=== PATIENT | female | born 1955 | race Caucasian/White ===

== ENCOUNTER 2017-10-09 15:26 | Inpatient (IN) | payer OTHER ==
[~2017-10-09] VITALS: Ht 157.5 cm; Wt 68.0 kg
--- NOTE | 2017-10-09 15:30 | NUR ---
PATIENT TO ED C/O COUGH CONGESTION NAUSEA VOMTIING CHILLS X3 DAYS .AFEBRILE AT THIS TIME. VSS
[2017-10-09] MEDS ORDERED: ONDANSETRON 4 MG TAB.RAPDIS ONE (16:19)
--- NOTE | 2017-10-09 16:28 | NUR ---
CALLED RT FOR BREATING TX
[2017-10-09] MEDS ORDERED: IPRATROPIUM NEB FS 0.5 MG/2.5 ML AMPUL.NEB NEB ONE (16:30)
[2017-10-09] MEDS ORDERED: ALBUTEROL FS 2.5 MG/3 ML VIAL.NEB NEB ONE ×2 (16:30→18:30)
[2017-10-09] MEDS ORDERED: ONDANSETRON 4 MG TAB.RAPDIS SL ONE (16:30)
[2017-10-09] MEDS ORDERED: AZITHROMYCIN 500 MG in IV D5W 250 ML IV ONE (18:30)
[2017-10-09] MEDS ORDERED: ACETAMINOPHEN ES 500 MG TABLET PO ONE (18:30)
[2017-10-09] MEDS ORDERED: IBUPROFEN 600 MG TABLET PO ONE ×2 (18:30→18:35)
[2017-10-09] MEDS ORDERED: IV NS 0.9% 1,000 ML BAG IV ONE ×2 (18:30)
[2017-10-09] MEDS ORDERED: CEFTRIAXONE 2 G in IV D5W 50 ML IV ONE (18:30)
[2017-10-09] MEDS ORDERED: CEFTRIAXONE 1GM BAG (ER ONLY) 50 ML IV ONE (18:30)
--- NOTE | 2017-10-09 18:30 | NUR ---
CALLED NURSING SUP. FOR TELE BED
[2017-10-09] MEDS ORDERED: CEFTRIAXONE 1GM BAG (ER ONLY) 100 ML IV ONE (18:34)
[2017-10-09] MEDS ORDERED: ACETAMINOPHEN ES 500 MG TABLET ONE (18:35)
--- NOTE | 2017-10-09 18:37 | NUR ---
EPIC PAGED, ROUTE AGENT
[2017-10-09 19:05] LABS: BASOPHILS # (AUTO) 0.2 /CMM (0.0-0.2); BASOPHILS % (AUTO) 1.7 % (0.0-2.0); EOSINOPHILS % (AUTO) 0.1 % (0.0-6.0); HEMATOCRIT 43 % (33-45); HEMOGLOBIN 14.5 g/dL (11.5-14.8); LYMPHOCYTES # (AUTO) 0.5 /CMM (0.8-4.8); LYMPHOCYTES % (AUTO) 3.8 % (20.0-44.0); MEAN CORPUSCULAR HEMOGLOBIN 29 PG (26.0-33.0); MEAN CORPUSCULAR HGB CONC 33 g/dl (31.0-36.0); MEAN CORPUSCULAR VOLUME 86 fL (82-100); MONOCYTES # (AUTO) 0.6 /CMM (0.1-1.30); MONOCYTES % (AUTO) 4.6 % (2.0-12.0); NEUTROPHILS # (AUTO) 12.5 /CMM (1.8-8.9); NEUTROPHILS % (AUTO) 89.8 % (43.0-81.0); PLATELET COUNT (AUTO) 218 /CMM (150-450); RED BLOOD CELL COUNT(AUTO) 5.08 MIL/uL (4.0-5.2); WHITE BLOOD COUNT (AUTO) 13.8 K/uL (4.3-11.0)
[2017-10-09 19:14] LABS: CALCIUM, SERUM 9.1 mg/dL (8.5-10.1); CREATININE 1.1 mg/dL (0.6-1.3); POTASSIUM 3.7 mmol/L (3.5-5.1)
--- NOTE | 2017-10-09 19:31 | NUR ---
TELE 322-2
[2017-10-09 20:00] VITALS: BP 95/54
--- NOTE | 2017-10-09 20:02 | NUR ---
PT TRANSPORTED TO TELE 322-2 VIA ACLS PROTOCOL. BEDSIDE REPORT GIVEN TO SUPERVISOR PLATING AND POINT ASSEMBLYJAMEY CORREIA.
[2017-10-09 21:33] LABS: BAND % (MANUAL) 18 % (0.0-5.0); LYMPHOCYTES % (MANUAL) 7 % (16-48); MONOCYTES % (MANUAL) 5 % (0-11.0); NEUTROPHILS % (MANUAL) 69 (42-76); REACTIVE LYMPHOCYTES 1 % (0-0)
[2017-10-09] MEDS ORDERED: ACETAMINOPHEN 325 MG TABLET PO PRN (22:30)
[2017-10-09] MEDS ORDERED: MAG HYDROX/AL HYDROX/SIMETH 30 ML UDC PO PRN (22:30)
[2017-10-09] MEDS ORDERED: HYDROCODONE/APAP 5/325MG 1 EACH TABLET PO PRN (22:30)
[2017-10-09] MEDS ORDERED: IV NS 0.9% 1,000 ML IV PRN (22:30)
[2017-10-09] MEDS ORDERED: ONDANSETRON HCL/PF 4 MG/2 ML VIAL IVP PRN (22:30)
[2017-10-09] MEDS ORDERED: Z GUARD REMEDY 2 OZ OINT TP PRN (22:30)
[2017-10-09] MEDS ORDERED: ZOLPIDEM TARTRATE 5 MG TABLET PO PRN (22:30)
[2017-10-09] MEDS ORDERED: MAGNESIUM HYDROXIDE 30 ML UDC PO PRN (22:30)
[2017-10-09] MEDS ORDERED: ENOXAPARIN SODIUM 40 MG/0.4 ML DISP.SYRIN SQ ONE (22:40)
[2017-10-09] MEDS ORDERED: LEVOFLOXACIN 750 MG /D5W 150ML 150 ML IV ONE (22:43)
[2017-10-09] MEDS: LEVOFLOXACIN 750 MG /D5W 150ML 750 MG in PREMIX 1 EA IV SCH (22:50)
[2017-10-09] MEDS: ENOXAPARIN SODIUM 40 MG/0.4 ML DISP.SYRIN SQ SCH (22:54)
--- NOTE | 2017-10-09 23:03 | NUR ---
PERMACULTURE DESIGNER NOTES LEVOFLOXACIN 750 MG IN 150 ML D5W WAS GIVEN UNABLE TO SCAN MANUAL BARCODED NO A/R NOTED
[2017-10-10] VITALS: BP 90/53
[2017-10-10] MEDS ORDERED: IPRATROPIUM NEB FS 0.5 MG/2.5 ML AMPUL.NEB ONE (01:35)
[2017-10-10] MEDS ORDERED: ALBUTEROL FS 2.5 MG/0.5 ML VIAL.NEB ONE (01:35)
[2017-10-10] MEDS: ALBUTEROL FS 2.5 MG/0.5 ML VIAL.NEB NEB PRN ×2 (01:42→16:38)
[2017-10-10] MEDS: IPRATROPIUM NEB FS 0.5 MG/2.5 ML AMPUL.NEB NEB PRN ×2 (01:42→16:38)
[2017-10-10 04:00] VITALS: BP 118/59
[2017-10-10] MEDS ORDERED: ACETYLCYSTEINE 10% SOLN 400 MG/4 ML VIAL NEB SCH (05:30)
--- NOTE | 2017-10-10 06:16 | NUR ---
Tele s/r 70s s/l 20 ga s/l to right intact no edema or swelling noted. O2 2l n/c sat 94 % notified [facility] pt requesting ambien 5mg po for insomonia and cough surup for productive cough. Dr ordered mucomyst and ambien.
--- NOTE | 2017-10-10 07:30 | NUR ---
MS RN OPENING NOTES RECEIVED PATIENT IN STABLE CONDITION. IN NO APPARENT DISTRESS. BEDSIDE RAILS ARE UP X2. BED IS LOCKED AND LOWERED. WILL CONTINUE TO MONITOR. CALL LIGHT IS WITHIN REACH.
[2017-10-10 07:45] LABS: BASOPHILS % (AUTO) 0.2 % (0.0-2.0); EOSINOPHILS % (AUTO) 0.1 % (0.0-6.0); HEMATOCRIT 32 % (33-45); HEMOGLOBIN 10.9 g/dL (11.5-14.8); LYMPHOCYTES # (AUTO) 1.5 /CMM (0.8-4.8); LYMPHOCYTES % (AUTO) 14.4 % (20.0-44.0); MEAN CORPUSCULAR HEMOGLOBIN 30 PG (26.0-33.0); MEAN CORPUSCULAR HGB CONC 34 g/dl (31.0-36.0); MEAN CORPUSCULAR VOLUME 87 fL (82-100); MONOCYTES # (AUTO) 0.7 /CMM (0.1-1.30); MONOCYTES % (AUTO) 6.8 % (2.0-12.0); NEUTROPHILS # (AUTO) 8.4 /CMM (1.8-8.9); NEUTROPHILS % (AUTO) 78.5 % (43.0-81.0); PLATELET COUNT (AUTO) 152 /CMM (150-450); RDW COEFFICIENT OF VARIATION 11.9 (11.5-15.0); RED BLOOD CELL COUNT(AUTO) 3.66 MIL/uL (4.0-5.2); WHITE BLOOD COUNT (AUTO) 10.6 K/uL (4.3-11.0)
[2017-10-10 08:00] VITALS: BP 103/62
[2017-10-10 08:01] LABS: CALCIUM, SERUM 7.8 mg/dL (8.5-10.1); CREATININE 0.9 mg/dL (0.6-1.3); PHOSPHORUS 2.6 mg/dL (2.5-4.9); POTASSIUM 3.6 mmol/L (3.5-5.1)
[2017-10-10] MEDS: MENTHOL/CETYLPYRD (CEPACOL) 1 LOZ LOZENGE PO PRN ×2 (14:25→22:35)
[2017-10-10 16:00] VITALS: BP 138/84
[2017-10-10] MEDS ORDERED: IV 1/2NS 1000 ML 1,000 ML IV PRN (18:00)
--- NOTE | 2017-10-10 19:00 | NUR ---
MS RN CLOSING NOTES PATIENT IS IN STABLE CONDITION. IN NO APPARENT DISTRESS. BEDSIDE RAILS ARE UP X2. BED IS LOCKED AND LOWERED. WILL ENDORSE CARE TO BROOMCORN SORTER NURSE FOR ASA.
--- NOTE | 2017-10-10 19:30 | NUR ---
RN NOTES RECEIVED PATIENT IN BED AWAKE, AO X 3, ABLE TO MAKE NEEDS KNOWN. NO ACUTE DISTRESS NOTED. DENIES ANY PAIN AT THIS TIME. IV SITE PATENT, INTACT; IVF INFUSING ORDERED. SAFETY REMINDERS GIVEN. ON LOW BED WITH BILATERAL UPPER SIDE RAILS UP. CALL [facility]ER[facility] WITHIN EASY REACH. WILL CONTINUE TO MONITOR.
[2017-10-10 20:00] VITALS: BP 148/88
[2017-10-10 20:14] VITALS: BP 148/88
[2017-10-10] MEDS: LEVOFLOXACIN 750 MG /D5W 150ML 750 MG in PREMIX 1 EA IV SCH (22:28)
[2017-10-10] MEDS: ENOXAPARIN SODIUM 40 MG/0.4 ML DISP.SYRIN SQ SCH (22:30)
[2017-10-11 04:00] VITALS: BP 114/69
[2017-10-11 06:21] LABS: BASOPHILS % (AUTO) 0.2 % (0.0-2.0); EOSINOPHILS % (AUTO) 0.1 % (0.0-6.0); HEMATOCRIT 32 % (33-45); HEMOGLOBIN 11.1 g/dL (11.5-14.8); LYMPHOCYTES # (AUTO) 1.3 /CMM (0.8-4.8); LYMPHOCYTES % (AUTO) 18.1 % (20.0-44.0); MEAN CORPUSCULAR HEMOGLOBIN 30 PG (26.0-33.0); MEAN CORPUSCULAR HGB CONC 35 g/dl (31.0-36.0); MEAN CORPUSCULAR VOLUME 86 fL (82-100); MONOCYTES # (AUTO) 0.5 /CMM (0.1-1.30); NEUTROPHILS # (AUTO) 5.1 /CMM (1.8-8.9); NEUTROPHILS % (AUTO) 74.6 % (43.0-81.0); PLATELET COUNT (AUTO) 160 /CMM (150-450); RDW COEFFICIENT OF VARIATION 11.9 (11.5-15.0); RED BLOOD CELL COUNT(AUTO) 3.73 MIL/uL (4.0-5.2); WHITE BLOOD COUNT (AUTO) 6.9 K/uL (4.3-11.0)
--- NOTE | 2017-10-11 06:21 | NUR ---
RN NOTES PATIENT IN BED ASLEEP, EASILY AROUSABLE. RESPIRATIONS EVEN. NO SIGNS OF PAIN NOTED. DUE MEDS GIVEN WITH NO ASE NOTED. NEEDS ATTENDED. KEPT CLEAN AND DRY. SAFETY PRECAUTIONS AND COMFORT MEASURES IN PLACE. FAMILY AT BEDSIDE. WILL GIVE REPORT TO DAY SHIFT FOR CONTINUITY OF CARE. Addendum: 10/11/17 at 0622 by MIRIAM MIRANDA RN FAMILY NOT AT BEDSIDE AT THIS TIME.
[2017-10-11 06:59] LABS: CALCIUM, SERUM 8.3 mg/dL (8.5-10.1); CREATININE 0.9 mg/dL (0.6-1.3); POTASSIUM 3.4 mmol/L (3.5-5.1)
--- NOTE | 2017-10-11 07:38 | NUR ---
MS RN OPENING NOTES PATIENT RECEIVED AWAKE IN BED IN NO ACUTE SIGNS OF DISTRESS. A/O X 4. AMBULATORY AND VERBALLY RESPONSIVE WITH NO C/O PAIN OR DISCOMFORTS AT THIS TIME. ON ROOM, BREATHING EVEN WITH NO SOB NOTED. IV SITE ON LEFT FA G#20 PATENT AND INTACT, PT REFUSED IVF OF 1/2 NS @75 ML/HR. BED LOCKED AND IN LOW POSITION WITH BILATERAL UPPER SIDE RAILS UP. CALL [facility]EROS WITHIN EASY REACH. ALL NEEDS AND CARE PROVIDED WELL. WILL CONTINUE TO MONITOR.
[2017-10-11 08:00] VITALS: BP 129/72
[2017-10-11] MEDS ORDERED: LEVO750T21 PO (11:11)
--- NOTE | 2017-10-11 11:12 | NUR ---
RN NOTES INFORMED Dwain CLOUD NP REGARDING PT'S LOW K 3.4 WITH ORDER TO GIVE KDUR 20MEQ TAB X1 DOSE ONLY. WILL CONTINUE TO MONITOR.
[2017-10-11] MEDS ORDERED: POTASSIUM CHLORIDE 20 MEQ TAB.PRT.SR PO ONE (11:30)
--- NOTE | 2017-10-11 14:17 | NUR ---
RN DISCHARGED NOTES PATIENT DISCHARGED HOME IN STABLE CONDITION. PT LEFT UNIT AMBULATORY AT 1400 ACCOMPANIED BU . V/S CHECKED AND RECORDED. BELONGINGS CHECKED, COUNTED AND SIGNED FORM. PT'S SKIN IS INTACT. IV ACCESS REMOVED WITH NO BLEEDING NOTED. PT REFUSED PNA AND FLU VACCINES. EXIT CARE REVIEWED AND HEALTH TEACHINGS GIVEN TO PT AND HER BOTH VERBALIZED UNDERSTANDING. ALL APPROPRIATE PAPERS SIGNED. MD AND CHARGE NURSE AWARE OF DISCHARGE.
== END 2017-10-11 14:15 | disposition home or self-care (01) | DRG 871 ==
LOC: ER 15:30 → TELE 20:16 → MED 10-10 16:18
PROVIDERS: ADMIT Nurse Practitioner Acute Care; ATTEND Nurse Practitioner Acute Care
DX: A41.9 Sepsis, unspecified organism (principal); J18.9 Pneumonia, unspecified organism; E86.0 Dehydration; G35 Multiple sclerosis; D63.8 Anemia in other chronic diseases classified elsewhere; D64.9 Anemia, unspecified; R06.03 Acute respiratory distress
CPT/HCPCS: 36415; 71010-TC; 80048-TC; 80061-TC; 83605-TC; 83735-TC; 84100-TC; 85025-TC; 87040-TC; 87081-TC; 87400; A4216; A4606; J0456; J0696; J1650; J1956; J3490; J7060; Q0162; Z7610